=== PATIENT | female | born 1950 | race African-American/Black ===

== ENCOUNTER → 2017-06-12 | Outpatient (CLI) | payer BC, OTHER ==
--- NOTE | 2017-06-12 14:47 | RAD ---
PA and lateral chest radiographs 06/12/2017 Clinical history: Pneumonia. Cough. PA and lateral digital radiographs of the chest were obtained. Comparison study is dated 03/14/2016. The cardiac silhouette is normal in size. The thoracic aorta is tortuous. Atherosclerotic calcification of the thoracic aorta is seen. Patchy left lower lobe infiltrate is noted. Right basilar subsegmental atelectasis is seen. No pneumothorax or pleural effusion is noted. Degenerative changes are seen involving the thoracic spine. Impression: Patchy left lower lobe infiltrate.
== END | disposition home or self-care (01) ==
LOC: DXRADRC 13:57
PROVIDERS: ATTEND Internal Medicine
DX: J18.9 Pneumonia, unspecified organism (principal); R91.8 Other nonspecific abnormal finding of lung field; J98.11 Atelectasis; I70.0 Atherosclerosis of aorta; M47.894 Other spondylosis, thoracic region
CPT/HCPCS: 71020

== ENCOUNTER → 2017-06-26 | Outpatient (CLI) | payer OTHER ==
--- NOTE | 2017-06-26 15:50 | RAD ---
Examination: 2 views of the chest History: History of follow-up pneumonia. Comparison: 06/12/2017 Findings: The cardiovascular silhouette grossly appears unremarkable Patchy left lung base airspace opacities slightly improved compared to prior exam. Impression: Patchy left lung base pneumonia slightly improved compared to prior exam.
== END | disposition home or self-care (01) ==
LOC: DXRADRC 14:20
PROVIDERS: ATTEND Internal Medicine
DX: J18.9 Pneumonia, unspecified organism (principal)
CPT/HCPCS: 71020